=== PATIENT | female | born 1985 | race Caucasian/White ===

== ENCOUNTER 2016-05-18 17:11 | Emergency (ER) | payer OTHER ==
[2016-05-18 17:53] VITALS: BP 116/63
--- NOTE | 2016-05-18 18:45 | UC ---
Abdominal Pain Female HPI - HPI Summary HPI Summary: RUQ pain intermittent for past 3 weeks. Worse if she eats, particularly fatty foods like meatloaf. Pain lasts minutes to hours, sometimes is so severe she has to curl up into a ball. Nausea, no vomiting. Mild diarrhea first week, none since. No fever. NO history of similar pain. MOther and 2 younger sisters have had gallstones and cholecystectomies. No urinary symptoms. "Not ". She made an appointment with primary care doctor but they can't get her in until the . Had a bad spell of pain today and her made her come in. - History of Current Complaint Chief Complaint: UCAbdominalPain Stated Complaint: STOMACH PAIN Time Seen by Provider: 05/18/16 18:34 Hx Obtained From: Patient Hx Last Menstrual Period: 05/18/16 Onset/Duration: Gradual Onset, Lasting Weeks - 3 Timing: Intermittent Episodes Lasting: - minutes to hours Severity Initially: Moderate Severity Currently: None Location: Discrete At: RUQ Radiates: No Character: Aching, Colicy, Cramping, Sharp Aggravating Factor(s): Food Alleviating Factor(s): Nothing Associated Signs and Symptoms: Positive: Diaphoresis, Decreased Appetite - "I'm hungry, but I'm afraid to eat because it will stir up the pain", Nausea, Diarrhea - first week, none now. Negative: Cough, Chest Pain, Dizzy, Back Pain , Constipation, Blood in Stool, Urinary Symptoms, Vaginal Discharge, Vomiting - Risk Factors Ectopic Risk Factor: Negative Ovarian Torsion Risk Factor: Negative Allergies/Adverse Reactions: Allergies Allergy/AdvReac Type Severity Reaction Status Date / Time Shellfish Allergy Allergy Severe Hives/Diff. Verified 05/18/16 17:42 Breathing/I tching PMH/Surg Hx/FS Hx/Imm Hx Previously Healthy: Yes - Surgical History Surgical History: Yes Surgery Procedure, Year, and Place: tonsillectomy - Family History Known Family History: Positive: Other - mother and 2 sisters with gallstones - Social History Occupation: Employed Full-time Lives: With Family Alcohol Use: Occasionally Substance Use Type: None Smoking Status (MU): Never Smoked Tobacco Review of Systems Constitutional: Negative Skin: Negative Eyes: Negative ENT: Negative Respiratory: Negative Cardiovascular: Negative Gastrointestinal: Abdominal Pain Genitourinary: Negative Motor: Negative Neurovascular: Negative Musculoskeletal: Negative Neurological: Negative Psychological: Negative All Other Systems Reviewed And Are Negative: Yes Physical Exam Triage Information Reviewed: Yes Appearance: Well-Appearing, No Pain Distress, Well-Nourished Vital Signs: Initial Vital Signs Temp 97.8 F 05/18/16 17:43 Pulse 66 05/18/16 17:43 Resp 16 05/18/16 17:43 BP 116/63 05/18/16 17:43 Pulse Ox 100 05/18/16 17:43 Vital Signs Reviewed: Yes Eye Exam: Normal ENT Exam: Normal Neck exam: Normal Respiratory Exam: Normal Cardiovascular Exam: Normal Abdomen Description: Positive: No Organomegaly, Soft, Other: - mild RUQ tenderness on palpation. No rebound or guarding. No enlarged liver. Negative: CVA Tenderness (R), CVA Tenderness (L), Distended, Guarding, Hernia @, Hepatomegaly, McBurney's Point Tenderness, Peritoneal Signs, Pulsatile Mass, Splenomegaly Musculoskeletal Exam: Normal Neurological Exam: Normal Psychological Exam: Normal Skin Exam: Normal Diagnostics - Laboratory Diagnostic Studies Completed/Ordered: U/A: +blood (menses), scant leuks. HCG neg Abd Pain Female Course/Dx - Course Course Of Treatment: symptoms are suggestive of gallstones. She does have a lot of ketones in the urine, underscoring her history of being unable to eat anything much. I offered 3 options: ER now, return here in AM tomorrow, or call your primary care doctor tomorrow to see if they can set up an ultrasound. She wants to go to ER tonight - Differential Dx/Diagnosis Differential Diagnosis: Diverticulitis, Ectopic , Pancreatitis, Renal Colic, Urinary Tract Infection Provider Diagnoses: gallstones - Physician Notification/Consults Instructed by Provider To: MD Will See In ED Discharge - Discharge Plan Condition: Stable Disposition: TRANS HIGHER LVL OF CARE FAC Referrals: Ashwini Person MD [Primary Care Provider] -
== END 2016-05-18 19:18 | disposition left against medical advice (07) ==
LOC: UCCORT 17:11
DX: K80.20 Calculus of gallbladder without cholecystitis without obstruction (principal); Z32.02 Encounter for pregnancy test, result negative
CPT/HCPCS: 81025; 99202; G0463

== ENCOUNTER 2017-11-01 08:23 | Emergency (ER) | payer BC ==
--- OUTSIDE RECORDS SUMMARY | 2017-11-01 08:39 | XMS REPORT ---
:1985 External Reference #:[id number] Author Organization [facility] Address [address] [place] [address] Phone [phone] Care Team Providers Name Role Phone Francisco J Fields MD Care Team Information Director Clinical Information Services Unavailable Payers Type Date Identification Numbers Payment Provider Subscriber Commercial Policy Number: [id number] Jad Chance Colmenares PayID: [id number] [address] [address] [place] [address] Problems Date Description Provider Status Onset: 10/30/2017 Iron deficiency Humza Navas DO Active Onset: 06/02/2017 Gestation period greater than or equal Humza Navas DO Active to 37 weeks Onset: 06/02/2017 Anemia Humza Navas DO Active Onset: 06/02/2017 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 Family History Date Family Member(s) Problem(s) Comments General Vonwillibrand Syndrom 1 sister, 1 child Social History Type Date Description Comments Marital Status Occupation [employer]ician ETOH Use Denies alcohol use Smoking Patient denies history of smoking Recreational Drug Use Denies Drug Use Daily Caffeine Patient consumes minimal amounts of caffeine Allergies, Adverse Reactions, Alerts Date Description Reaction Status Severity Comments 06/02/2017 Shellfish-derived Products active 06/02/2017 Iodine active Medications Medication Date Status Form Strength Qnty SIG Indications Ordering Provider Ferrous Active Tablets 325mg 60tabs 1 tablet E61.1 Humza Sulfate 018 by mouth Yosef, twice a DO day with vitamin c 0 Active Tablets 14-0.4mg 1 by mouth Unknown Complete 000 every day Vitamin C 00/00/0 Active Capsules 500mg 1 by mouth Unknown 000 every day Sertraline Hx Tablets 100mg 1 by mouth Unknown HCL 000 - every day 018 Vital Signs Date Vital Result Comment 10/30/2017 BP Systolic 111 mmHg BP Diastolic 68 mmHg Body Temperature 97.9 F Heart Rate 97 /min Respiratory Rate 16 /min Weight 165.00 lb O2 % BldC Oximetry 98 % 06/13/2017 BP Systolic 107 mmHg BP Diastolic 69 mmHg Body Temperature 98.4 F Heart Rate 84 /min Weight 171.00 lb O2 % BldC Oximetry 95 % 06/02/2017 BP Systolic 121 mmHg BP Diastolic 70 mmHg Body Temperature 97.7 F Heart Rate 84 /min Height 64.25 inches 5'4.25" Weight 186.00 lb BMI (Body Mass Index) 31.7 kg/m2 BSA (Body Surface Area) 1.90 m2 Hulbert body weight in kilograms 55 O2 % BldC Oximetry 98 % Results Test Date Test Result H/L Range Note CBS W/Automated Diff 10/16/2017 White Blood Count 4.4 K/uL 3.1-10.7 1 Red Blood Count 4.38 M/uL 3.90-5.40 1 Hemoglobin 12.7 gm/dL 11.6-15.8 1 Hematocrit 37.5 % 36.0-46.1 1 Mean Cell Volume 85.6 fl 80.9-99.0 1 Mean Corpuscular HGB 29.0 pg 25.9-32.7 1 Mean Corpuscular HGB Conc 33.9 g/dL 30.8-34.3 1 Platelet Count 199 K/uL 155-360 1 Red Cell Distri Width SD 37.1 fl 3-47 1 Red Cell Distri Width %CV 12.3 % 11.7-14.4 1 Mean Platelet Volume 11.1 fL 8.9-12.4 1 Neut% 60.7 % 40.4-72.8 1 Lymph % 26.2 % 20.0-42.0 1 Cottle % 10.9 % 4.3-13.2 1 Eo% 2.0 % 0.0-6.6 1 Bas% 0.2 % 0.0-1.1 1 Neut# 2.68 K/uL 1.8-7.0 1 Lymph # 1.16 K/uL 1.0-4.0 1 Cottle # 0.48 K/uL 0.3-0.9 1 Eos # 0.09 K/uL 0.0-0.5 1 Baso # 0.01 K/uL 0.0-0.1 1 Laboratory test finding 10/16/2017 Factor VIII Activity 73 % 57-163 1, 2 Iron-Tibc-%Sat 10/16/2017 Serum Iron 40 g/dL Low 50-170 1 Total Iron Binding Capacity 237 g/dL Low 250-450 1 Transferrin %Saturation 17 % 12-57 1 Laboratory test 10/16/2017 Von Willebrand Factor 107 % 50-200 1, 3 finding Activity Laboratory test 06/02/2017 Von Willebrand Factor 159 % 50-200 1, 4 finding Activity Laboratory test 06/02/2017 Act Partial Thrombo 25.4 seconds 23.4-35.0 1 , 5 finding Time Protime 06/02/2017 Protime 12.3 seconds 12.0-14.4 1 Inr 0.9 0.9-1.1 1, 6 Laboratory test finding 06/02/2017 Factor VIII Activity 180 % High 57-163 1, 7 CBS W/Automated Diff 06/02/2017 White Blood Count 9.1 K/uL 3.1-10.7 1 Red Blood Count 4.28 M/uL 3.90-5.40 1 Hemoglobin 13.1 gm/dL 11.6-15.8 1 Hematocrit 37.5 % 36.0-46.1 1 Mean Cell Volume 87.6 fl 80.9-99.0 1 Mean Corpuscular HGB 30.6 pg 25.9-32.7 1 Mean Corpuscular HGB Conc 34.9 g/dL High 30.8-34.3 1 Platelet Count 211 K/uL 155-360 1 Red Cell Distri Width SD 42.1 fl 3-47 1 Red Cell Distri Width %CV 13.7 % 11.7-14.4 1 Mean Platelet Volume 11.2 fL 8.9-12.4 1 Neut% 82.2 % High 40.4-72.8 1 Lymph % 12.0 % Low 20.0-42.0 1 Cottle % 5.5 % 4.3-13.2 1 Eo% 0.2 % 0.0-6.6 1 Bas% 0.1 % 0.0-1.1 1 Neut# 7.45 K/uL High 1.8-7.0 1 Lymph # 1.09 K/uL 1.0-4.0 1 Cottle # 0.50 K/uL 0.3-0.9 1 Eos # 0.02 K/uL 0.0-0.5 1 Baso # 0.01 K/uL 0.0-0.1 1 Iron-Tibc-%Sat 06/02/2017 Serum Iron 125 g/dL 50-170 1 Total Iron Binding Capacity 493 g/dL High 250-450 1 Transferrin %Saturation 25 % 12-57 1 Vitamin B12 And Folate 06/02/2017 Vitamin B12 366 pg/mL 193-986 1 Folic Acid > 20.0 ng/mL High 3.1-17.5 1 Slide Review 06/02/2017 Slide Review (SEE NOTE) 1, 8 1 D68.2 2 Performed at: [place] [id number] [employer]: Sincere Morales MD, Phone: [phone] Performed at: [place] [id number] [employer]: Sincere Morales MD, Phone: [phone] Performed at: [address] [id number] [employer]: Sincere Morales MD, Phone: [phone] 5 Is patient on heparin protocol? <Blank> Is patient on anticoagulants? <Blank> 6 THERAPEUTIC INR RANGE: 2.0 - 3.0 DVT, Pulmonary embolus, prophylaxis against venous thrombosis or systemic embolization in high risk patients. 2.5 - 3.5 Mechanical heart valves 7 FVIII activity can increase in a variety of clinical situations including normal , in samples drawn from patients (particularly children) who are visibly stressed at the time of phlebotomy, as acute phase reactants, or in response to certain drug therapies such as DDAVP. Persistently elevated FVIII activity is a risk factor for venous thrombosis as well as recurrence of venous thrombosis. Risk is graded and increases with the degree of elevation. Although elevated FVIII activity has been identified to cluster within families, a genetic basis for the elevation has not yet been elucidated (Br J Haematol. 2012; 157:653-663). Performed at: [facility] [address] [id number] [employer]: Sincere Morales MD, Phone: [phone] Instrument flagged sample for slide review. Less than 10% Bands seen, no other immature WBC's seen. RBC morphology essentially normal. Platelet estimate=NORMAL Procedures Description No Information Encounters Type Date Location Provider CPT E/M Dx Office Visit 10/30/2017 1:45p [place] [address] D68.2 E61.1 Office Visit 06/13/2017 1:30p [place] [address] D68.2 D64.9 Office Visit 06/02/2017 1:00p [place] [address] D68.2 D64.9 [id number] Plan of Care Future Appointment(s):04/23/2018 1:30 pm - Oncology Nurse at [facility]cology [id number] 1:30 pm - Humza Navas DO at Oncology [id number]/30/2017 - Humza Navas, DOD68.2 Hereditary deficiency of other clotting factorsFollow up: Follow-up 6 months CBC iron studies one week aibelI08.1 Iron deficiencyNew Medication:Ferrous Sulfate 325 mgNew Labs:CBS W/Automated DiffIron-Tibc-%Sat
[2017-11-01 08:50] VITALS: BP 108/67
--- NOTE | 2017-11-01 09:01 | UC ---
Skin Complaint HPI - HPI Summary HPI Summary: Rash left arm mainly getting worse two days after weeding. Now there are some blisters as well. No fever. - History of Current Complaint Chief Complaint: UCRash Time Seen by Provider: 11/01/17 08:50 Stated Complaint: SKIN COMPLAINT Hx Obtained From: Patient Hx Last Menstrual Period: AUGUST 2016 Onset/Duration: Gradual Onset, Lasting Days Skin Exposure Onset/Duration: Days Ago Onset Severity: Moderate Current Severity: Moderate Pain Intensity: 0 Location: Diffuse - Left arm. Mild right arm and scant neck. Character: Pruritus Aggravating Factor(s): Touch Alleviating Factor(s): Nothing Associated Signs & Symptoms: Positive: Rash. Negative: Syncope, Drainage, Bruising, Tenderness - Allergy/Home Medications Allergies/Adverse Reactions: Allergies Allergy/AdvReac Type Severity Reaction Status Date / Time iodine Allergy Severe HIVES, Verified 11/01/17 08:42 BREATHING, ITCHING, THROAT SWELLING shellfish derived Allergy Severe HIVES, Verified 11/01/17 08:42 BREATHING/ITCHING, THROAT SWELLING Home Medications: Home Medications Ascorbic Acid TAB* [Vitamin C TAB*] 500 mg PO DAILY 11/01/17 [History Confirmed 11/01/17] Ferrous Sulfate TAB* 325 mg PO BID 11/01/17 [History Confirmed 11/01/17] Pnv No.95/Ferrous Fum/Folic AC [ Vitamin & Minera 28-0.8 mg] 1 tab PO DAILY 11/01/17 [History Confirmed 11/01/17] Review of Systems Skin: Rash All Other Systems Reviewed And Are Negative: Yes PMH/Surg Hx/FS Hx/Imm Hx Previously Healthy: No - Surgical History Surgical History: Yes Surgery Procedure, Year, and Place: tonsillectomy - Family History Known Family History: Positive: Other - mother and 2 sisters with gallstones - Social History Lives: With Family Alcohol Use: None Substance Use Type: None Smoking Status (MU): Never Smoked Tobacco Physical Exam Triage Information Reviewed: Yes Appearance: Well-Appearing, No Pain Distress, Obese Vital Signs: Initial Vital Signs Temp 97.8 F 11/01/17 08:43 Pulse 68 11/01/17 08:43 Resp 18 11/01/17 08:43 BP 108/67 11/01/17 08:43 Pulse Ox 99 11/01/17 08:43 Vital Signs Reviewed: Yes Eyes: Positive: Conjunctiva Clear ENT: Positive: Normal ENT inspection Neck: Positive: Supple, Nontender, No Lymphadenopathy Respiratory: Negative: Respiratory distress, Accessory muscle use Cardiovascular: Positive: Brisk Capillary Refill Abdomen Description: Negative: Distended Musculoskeletal: Positive: Strength Intact, ROM Intact, No Edema Neurological: Positive: Alert, Muscle Tone Normal. Negative: Fatigued Psychological: Positive: Age Appropriate Behavior Skin Exam: Other - diffuse macular papular rash mainly left arm with small clear fluid filled vesicles. Course/Dx - Diagnoses Provider Diagnoses: contact dermatitis. Discharge - Sign-Out/Discharge Documenting (check all that apply): Discharge/Admit/Transfer - Discharge Plan Condition: Good Disposition: HOME Prescriptions: Triamcinolone 0.5% CREAM(NF) [Triamcinolone 0.5% CREAM*] 1 applic TOPICAL BID # 30 tube Patient Education Materials: Dermatitis (ED) Referrals: Non Staff,Doctor [Primary Care Provider] - - Billing Disposition and Condition Condition: GOOD Disposition: Home
== END 2017-11-01 09:00 | disposition home or self-care (01) ==
LOC: UCCORT 08:23
DX: L25.9 Unspecified contact dermatitis, unspecified cause (principal); Z88.3 Allergy status to other anti-infective agents
CPT/HCPCS: 99212; G0463